=== PATIENT | male | born 1975 | race Caucasian/White ===

== ENCOUNTER 2021-03-05 17:41 | Emergency (ER) | payer MEDICAID ==
[~2021-03-05] VITALS: Ht 188 cm; Wt 108.4 kg
[~2021-03-05 17:41] MED LIST: LISI30TA4 PO; TRAM50TA2 PO
[2021-03-05] MEDS ORDERED: KETOROLAC TROMETH 60MG/2ML VIAL IM ONE ×2 (22:45→23:00)
[2021-03-05 22:50] VITALS: BP 152/93
== END 2021-03-05 23:32 | disposition home or self-care (01) ==
LOC: ER 17:41
DX: S30.0XXA Contusion of lower back and pelvis, initial encounter (principal); I10 Essential (primary) hypertension; W18.09XA Striking against other object with subsequent fall, initial encounter; Y93.89 Activity, other specified; Y92.89 Other specified places as the place of occurrence of the external cause; Y99.8 Other external cause status
CPT/HCPCS: 96372; 99283; J1885